=== PATIENT | male | born 1950 | race Caucasian/White ===

== ENCOUNTER 2019-03-23 | Day surgery (SDC) | payer SELFPAY ==
[~2019-03-23] MED LIST: ADVIL200 MG PO
[2019-03-23] MEDS ORDERED: PERCOCET 5/325M1 TAB PO (09:47)
== END 2019-03-23 11:07 | disposition home or self-care (01) | DRG 349 ==
PROC: 06BY3ZC Excision of Hemorrhoidal Plexus, Percutaneous Approach (ICD-10-PCS; principal; 2019-03-23)
DX: K64.3 Fourth degree hemorrhoids (principal)
CPT/HCPCS: C9290; J0131; J1100